=== PATIENT | female | born 1965 | race Caucasian/White ===

== ENCOUNTER 2023-03-08 13:12 | Emergency (ER) | payer OTHER, SELFPAY ==
[2023-03-08 13:18] VITALS: BP 139/94; PULSE 106; RESP 20; TEMP 36.9; O2SAT 97; BMI 39.0
--- NOTE | 2023-03-08 13:43 | ED.ANIMALBIT ---
HPI - Animal Bite General Date Seen: 03/08/23 Chief Complaint: Animal Bite Stated Complaint: Dog bite to r hand/fingers Time Seen by Provider: 03/08/23 13:23 Source: patient Mode of arrival: ambulatory Limitations: no limitations History of Present Illness HPI narrative: Patient is a 57-year-old female presents emergency department being bit by her dog. She states the dog was fighting with a squirrel when she tried to separate the causing her dog to bite her. Is a medium to large-sized dog. It bit her in the right hand and she has multiple abrasions to that hand with a large laceration to the palmar aspect of the index finger. No other injuries noted. She states her dog is fully vaccinated has not been showing any other aggressive activity. No other concerns at this time. She does note the finger has some swelling but she is able to move it. Related Data Previous Rx's Medication Instructions Recorded amoxicillin 875 mg-potassium 1 tab PO BID #14 tabs 03/08/23 clavulanate 125 mg tablet Allergies Allergy/AdvReac Type Severity Reaction Status Date / Time No Known Drug Allergies Allergy Verified 03/08/23 13:22 Review of Systems Narrative: Negative unless stated in HPI Exam Narrative: Exam Narrative: Const: Well-nourished, Well-developed, in mild distress Eyes: PERRL, no conjunctival injection, and symmetrical lids HENT: Atraumatic external nose and ears. Moist mucous membranes. MSK:Extremities w/o deformity, Normal Active ROM Skin: Warm, Dry. Multiple lacerations and abrasions to right hand with 1 larger laceration palmar aspect of the index finger that is gaping Neuro: Normal Muscle tone, No focal neurological deficits. Psych: Awake, Alert, & Oriented x3. Appropriate mood and affect. Const: Vital Signs, click to edit/add: Vital Signs - 24 hr 03/08/23 13:18 Temperature 98.5 F Pulse Rate [Left P ulse Oximeter] 106 H Respiratory Rate 20 Blood Pressure [Ri ght Upper Arm] 139/94 H Pulse Oximetry 97 Oxygen Delivery Me thod Room Air Course Vital Signs Vital signs: Initial Vital Signs Temperature 98.5 F 03/08/23 13:18 Temperature Source Temporal Artery Scan 03/08/23 13:18 Pulse Rate 106 H 03/08/23 13:18 Pulse Rhythm Regular 03/08/23 13:18 Pulse Strength 3+ Normal 03/08/23 13:18 Respiratory Rate 20 03/08/23 13:18 Blood Pressure 139/94 H 03/08/23 13:18 Blood Pressure Mean 109 H 03/08/23 13:18 Blood Pressure Position Sitting 03/08/23 13:18 Pulse Oximetry 97 03/08/23 13:18 Oxygen Delivery Method Room Air 03/08/23 13:18 Vital Signs Temperature 98.5 F 03/08/23 13:18 Pulse Rate 106 H 03/08/23 13:18 Respiratory Rate 20 03/08/23 13:18 Blood Pressure 139/94 H 03/08/23 13:18 Pulse Oximetry 97 03/08/23 13:18 Oxygen Delivery Method Room Air 03/08/23 13:18 Temperature 98.5 F 03/08/23 13:18 Pulse Rate 106 H 03/08/23 13:18 Respiratory Rate 20 03/08/23 13:18 Blood Pressure 139/94 H 03/08/23 13:18 Pulse Oximetry 97 03/08/23 13:18 Oxygen Delivery Method Room Air 03/08/23 13:18 Medications Administered Medications: Discontinued Medications Generic Name Dose Route Start Last Admin Trade Name Freq PRN Reason Stop Dose Admin Ampicillin Sodium/Sulbactam 100 mls @ 200 mls/hr 03/08/23 13:40 03/08/23 14:29 Sodium 3 gm/ Sodium Chloride IVPB 03/08/23 13:41 Infused ONCE ONE Infusion MDM - Animal Bite MDM Narrative Medical decision making narrative: Patient is a 57-year-old female was bit on her right hand by her dog. The dog was fighting with his brother has been showing no other aggressive behavior. Is vaccinated for rabies. I do not believe rabies prophylaxis is needed at this time. Review no acute for the was able to get a good view of laceration of was no foreign bodies or broken teeth her in the wound. She has full range of motion of her finger at this point. Couple of the lower concerning was the dog bites her I will give her a dose of IV Unasyn. There was 1 does 50 gaping laceration, on the ulnar aspect of the index finger. To the that I have placed to lose sutures to pull the area closer together. While typically we do not suture removal plates invite necessary to seizure least improve the approximate the sides of this wound but did not make it tight. No signs of flexor tenosynovitis at this time I gave her very clear in strict return precautions if she finds any signs of this. She will be discharged on Augmentin. She is agreeable with this plan. She does have a appointment with a primary care provider next week. Discharge Plan Discharge Clinical Impression: Dog bite Qualifiers: Encounter type: initial encounter Qualified Code(s): W54.0XXA - Bitten by dog, initial encounter Patient Disposition: Home, Self-Care Condition: Stable Instructions: Animal Bite (ED) Additional Instructions: If you have any concerns your dog might be having rabies is him showing aggressive signs or foaming at the mouth please return to emergency department for prophylactic rabies vaccine. If you develop any of the following signs called Kanavel's Signs it could be a sign of flexor tenosynovitis and is an emergency that he need to return to emergency department immediately for -Pain with passive extension (often the first sign seen) -Percussion tenderness (tenderness over entire length of flexor tendon sheath) -Uniform swelling (symmetric finger swelling along length of the tendon sheath) -Flexion posture (flexed posture of involved digit at rest to minimize pain) Follow-up with your primary care provider in the next 7 days to have the 2 sutures removed. For next 6 months, once sutures are removed, whenever you goes outside put a tab of sunscreen over the laceration site to improve scar appearance. Topical antibiotics are not necessary at this time. Patient can shower but do not submerge the laceration until sutures are removed Take the Augmentin as prescribed. Prescriptions: New amoxicillin-pot clavulanate 875-125 mg tablet 1 tab PO BID Qty: 14 0RF Stand Alone Forms: [facility] Info Instructions Procedures Laceration Index finger: Name of person performing procedure: Bryce Rush Site: hand (Index finger) Side (If applicable): right Size (cm): 1.5 Description: stellate Depth: simple, single layer Local Anesthetic: lidocaine 1% (Digital nerve block) Amount of anesthesia used (mL): 5 Pre-repair: wound explored, irrigated extensively and deep structures intact Skin layer closed with: nylon Size (cm): 5-0 Number of sutures: 2 Technique: simple, interrupted
[2023-03-08] MEDS: AMPICILLIN/SULBACTAM 3 GM in 0.9 % SODIUM CHLORIDE Mini-bag 100 ML IVPB (13:58)
--- NOTE | 2023-03-08 14:31 | ED.NURSE ---
Lacerations to right hand cleansed, wrapped in telfa and gauze.
== END 2023-03-08 14:35 | disposition home or self-care (01) ==
LOC: ED 14:14
PROVIDERS: Emergency Provider Student in an Organized Health Care Education/Training Program
DX: S61.250A Open bite of right index finger without damage to nail, initial encounter (principal); W54.0XXA Bitten by dog, initial encounter
CPT/HCPCS: 12001; 95992; 96365; 99282; 99283; J0295